=== PATIENT | male | born 1990 | race African-American/Black ===

== ENCOUNTER 2020-01-09 22:07 | Emergency (ER) | payer SELFPAY ==
[~2020-01-09] VITALS: Ht 185.4 cm; Wt 122.0 kg
[2020-01-09] MEDS ORDERED: KETOROLAC 30MG/ML VIAL IV STA (22:33)
[2020-01-09] MEDS ORDERED: SODIUM CHLORIDE 0.9% 1,000 ML IV ONE (22:33)
[2020-01-09] MEDS ORDERED: ONDANSETRON HCL 4MG/2ML INJ IV STA (22:33)
[2020-01-09 22:51] LABS: BASOPHILS % 0.2 % (0.0-2.0); EOSINOPHILS % 1.3 % (0.0-5.0); HEMATOCRIT. 54.4 % (42.0-52.0); HEMOGLOBIN. 18.7 g/dL (14.0-18.0); LYMPHOCYTES % 7.1 % (20.0-50.0); MEAN CORPUSCULAR HEMOGLOBIN 27.5 pg (28.0-32.0); MEAN PLATELET VOLUME 10.5 fl (7.4-10.4); MONOCYTES % 5.7 % (2.0-8.0); NEUTROPHILS % 85.7 % (40.0-76.0); PLATELET 233 x1000/uL (130-400); RED CELL DISTRIBUTION WIDTH 13.6 % (11.6-14.6)
[2020-01-09 22:55] LABS: CHLORIDE 107 mEq/L (98-107)
[2020-01-09 22:59] LABS: ETHANOL BLOOD < 10 mg/dL
[2020-01-10 02:12] VITALS: BP 120/82
== END 2020-01-10 02:17 | disposition home or self-care (01) ==
LOC: ER 22:07
DX: R11.2 Nausea with vomiting, unspecified (principal); R10.9 Unspecified abdominal pain; E11.9 Type 2 diabetes mellitus without complications
CPT/HCPCS: 36415; 74176; 80053; 80320; 83690; 85025; 96361; 96374; 96375; 99284; J1885; J2405; J7030; G0480